=== PATIENT | female | born 1975 | race Caucasian/White ===

== ENCOUNTER 2021-08-09 09:43 | Outpatient (CLI) | payer OTHER | END 2021-08-09 09:44 | disposition home or self-care (01) | LOC: MRI 09:43 | PROVIDERS: ATTEND Specialist | DX: M51.17 Intervertebral disc disorders with radiculopathy, lumbosacral region (principal); M47.26 Other spondylosis with radiculopathy, lumbar region; M47.27 Other spondylosis with radiculopathy, lumbosacral region; Q05.7 Lumbar spina bifida without hydrocephalus; M48.061 Spinal stenosis, lumbar region without neurogenic claudication | CPT/HCPCS: 72148 ==

== ENCOUNTER 2021-08-15 20:32 | Emergency (ER) | payer OTHER ==
[2021-08-15] MEDS ORDERED: Morphine 4 MG/ML VIAL ONE (22:32)
[2021-08-15] MEDS ORDERED: Ondansetron PF 4 MG/2 ML Vial ONE (22:32)
[2021-08-16] MEDS ORDERED: Morphine 4 MG/ML VIAL ONE (00:25)
[2021-08-16] MEDS ORDERED: Ondansetron PF 4 MG/2 ML Vial ONE (00:25)
== END 2021-08-16 01:30 | disposition home or self-care (01) ==
LOC: ERS 20:32
DX: S39.012A Strain of muscle, fascia and tendon of lower back, initial encounter (principal); X58.XXXA Exposure to other specified factors, initial encounter; M51.16 Intervertebral disc disorders with radiculopathy, lumbar region; I10 Essential (primary) hypertension; E78.00 Pure hypercholesterolemia, unspecified; F17.210 Nicotine dependence, cigarettes, uncomplicated; Z79.1 Long term (current) use of non-steroidal anti-inflammatories (NSAID); Z79.899 Other long term (current) drug therapy
CPT/HCPCS: 72132; 74177; 96374; 96375; 96376; J2270; J2405

== ENCOUNTER 2021-10-01 10:29 | Emergency (ER) | payer OTHER ==
[~2021-10-01 10:29] MED LIST: Iopamidol 370 76% 100 ML VIAL ONE
[2021-10-01 11:01] LABS: Hemoglobin 14.5 g/dL (12.0-16.0); Mean Corpuscular HGB CONC 30.8 g/dL (32.0-36.0); Mean Corpuscular Hemoglobin 29.6 pg (27.0-31.0); Mean Corpuscular Volume 95.9 fL (78.0-98.0); Mean Platelet Volume 7.2 fL (7.4-10.4); Platelet Count 893 thou/uL (130-400); RBC Distribution Width 11.9 % (11.5-14.5); Red Blood Cell (RBC) Count 4.91 mill/uL (4.20-5.40)
[2021-10-01] MEDS ORDERED: Morphine 4 MG/ML VIAL ONE (11:03)
[2021-10-01] MEDS ORDERED: Ondansetron PF 4 MG/2 ML Vial ONE (11:04)
[2021-10-01] MEDS ORDERED: Piperacillin/Tazobactam 3.375 GM VIAL ONE (11:04)
[2021-10-01 11:14] LABS: INR-International Normal Ratio 1.1; PTT 35.1 sec (22.9-36.1); Prothrombin Time 14.2 sec (12.0-14.7)
[2021-10-01 11:22] LABS: ALT (SGPT) 25 U/L (8-55); AST (SGOT) 16 U/L (5-34); Albumin 3.7 g/dL (3.5-5.0); Alkaline Phosphatase 100 U/L (40-110); Anion Gap 16 mmol/L (10-20); BUN (Urea Nitrogen) 5 mg/dL (7.0-18.7); Bilirubin, Total 0.4 mg/dL (0.2-1.2); Calc. Creatinine Clearance 0 mL/min (70-130); Calcium 9.4 mg/dL (7.8-10.44); Carbon Dioxide 23 mmol/L (22-29); Chloride 105 mmol/L (98-107); Globulin 3.8 g/dL (2.4-3.5); Glucose 110 mg/dL (70-105); Protein, Total 7.5 g/dL (6.0-8.3); Sodium 140 mmol/L (136-145)
[2021-10-01 11:23] LABS: Band 4 % (5-11); Eosinophils 1 % (0-10); Lymphocytes 6 % (21-51); MDiff Complete? YES; Monocytes 4 % (0-10); Neutrophil 85 % (42-75); Platelet Morphology Comment Appears Increased; RBC Morphology Normal
[2021-10-01 12:23] LABS: Bilirubin Negative (Negative); Blood, Urine Negative (Negative); Clarity Clear (Clear); Glucose, Urine (Dipstick) Normal (Negative); Ketone, Urine 20 mg/dL (Negative); Leukocyte Negative Leu/uL (Negative); Nitrite Negative (Negative); Protein, Urine (Dipstick) Negative (Neg-Trace); Specific Gravity, Urine 1.026 (1.002-1.036); Urobilinogen Normal mg/dL (Less than 2)
[2021-10-01] MEDS ORDERED: Promethazine HCl 25 MG/ML VIAL ONE (13:23)
== END 2021-10-01 17:34 | disposition short-term general hospital (02) ==
LOC: ERS 10:29
DX: R11.2 Nausea with vomiting, unspecified (principal); D72.829 Elevated white blood cell count, unspecified; R00.0 Tachycardia, unspecified; N73.8 Other specified female pelvic inflammatory diseases; I10 Essential (primary) hypertension; E78.6 Lipoprotein deficiency; F17.210 Nicotine dependence, cigarettes, uncomplicated; Z79.899 Other long term (current) drug therapy
CPT/HCPCS: 74177; 80053; 81003; 83605; 83690; 84484; 85025; 85610; 85730; 87040; 87086; 94760; 96365; 96366; 96368; 96375; J2270; J2405; J2543; J2550; Q9967

== ENCOUNTER 2022-04-04 10:04 | Outpatient (CLI) | payer OTHER ==
[2022-04-04] MEDS ORDERED: Iopamidol 370 76% 100 ML VIAL ONE (10:25)
== END 2022-04-04 10:05 | disposition home or self-care (01) ==
LOC: CT 10:04
PROVIDERS: ATTEND Specialist
DX: N73.9 Female pelvic inflammatory disease, unspecified (principal); M51.17 Intervertebral disc disorders with radiculopathy, lumbosacral region; M51.26 Other intervertebral disc displacement, lumbar region
CPT/HCPCS: 72148; 74178